=== PATIENT | female | born 1995 | race Caucasian/White ===

== ENCOUNTER 2016-09-29 22:11 | Emergency (ER) | payer MEDICAID ==
[2016-09-30] MEDS ORDERED: CEFTRIAXONE 1 GM VIAL ONE (03:59)
[2016-09-30] MEDS ORDERED: SODIUM CHLORIDE 0.9% 0 ML IV ONE (03:59)
[2016-09-30] MEDS ORDERED: CEPHALEXIN 250 MG CAP ONE (04:21)
== END 2016-09-30 05:13 | disposition home or self-care (01) ==
LOC: ER 22:11
CPT/HCPCS: 36415; 80053; 81001; 84703; 85025; 87088; 93005